=== PATIENT | male | born 1940 | race Caucasian/White ===

== ENCOUNTER 2017-01-11 00:15 | Emergency (ER) | payer MEDICARE, OTHER ==
--- NOTE | 2017-01-11 01:07 | ERNOTE ---
Medical Problem HPI - General Chief Complaint: General Assessment Time Seen by Provider: 01/11/17 00:43 Source: patient Exam Limitations: no limitations - Immun/Allergies/Home Medications Immunizations: IMMUNIZATION HX Immunizations Up to Date Yes History of Influenza Vaccine No Hx Pneumococcal Vaccination No Allergies/Adverse Reactions: Allergies Sulfa (Sulfonamide Antibiotics) Allergy (Verified 01/11/17 00:20) Home Medications: HOME MEDICATIONS Atenolol [Tenormin] 50 mg PO DAILY 03/10/13 [Last Taken Unknown] Terazosin HCl [Hytrin] 5 mg PO HS 03/10/13 [Last Taken Unknown] Warfarin Sodium [Coumadin] 5.5 mg PO DAILY 03/10/13 [Last Taken Unknown] Furosemide [Lasix] 40 mg PO DAILY 12/13/15 [Last Taken Unknown] Tramadol HCl [Rybix Odt] 50 mg PO Q4H PRN 12/13/15 [Last Taken Unknown] predniSONE [Prednisone] 2 tab PO DAILY #10 tab 12/13/15 [Last Taken Unknown] - History of Present History Narrative: Pt has had a sore mouth for a few days and has been using salt water rinses but it has not helped. Today his tongue began bleeding and has not stopped. Pt is on coumadin and is nearly due for his monthly INR. Timing: constant Severity: mild Review of Systems - Review of Systems Constitutional: Absent: recent illness, fever EYE: Present: no symptoms reported ENT: Present: other - oral pain. Absent: nose congestion, sore throat Respiratory: Absent: shortness of breath, cough Cardiology: Present: no symptoms reported Gastrointestinal/Abdominal: Absent: nausea, vomiting Genitourinary: Present: no symptoms reported Musculoskeletal: Present: no symptoms reported Skin: Present: no symptoms reported Neurological: Present: no symptoms reported Endocrine: Present: no symptoms reported Hematologic/Lymphatic: Present: no symptoms reported Psych: Present: no symptoms reported - Patient's Past Medical History Patient History - Medical: Arthritis, GERD, Other Patient History - Cardiac/Respiratory: Atrial Fibrillation Patient History - Cancer: No Hx of Cancer Patient History - Surgical Procedures: Colonoscopy, Other Patient History - Other: None - Family History Mother Family History - Cardiac/Respiratory: Coronary Heart Disease - Social History Living Situations: home Abuse History: No History of abuse Psych History: No pertinent hx Smoking Status: Never smoker Have you smoked in the past 12 months: No Do you dip or chew tobacco: No Alcohol Use: none Drug Use: none - Immunizations Immunizations Up to Date: Yes Hx Pneumococcal Vaccination: No History of Influenza Vaccine: No Physical Exam - Physical Exam General Appearance: Present: wd/wn, alert, no apparent distress Head Exam: Present: normal inspection, no evidence of injury Ears, Nose, Throat: Present: normal pharynx, other - mucous membranes moist, tongue has deep grooves and has a crack or laceration on the right superior surface of the tongue oriented longitudinally. The wound is bleeding mildly- to moderately. No other injury to the tongue inferiorly or laterally Neck: Present: normal inspection, nontender, supple Respiratory: Present: no respiratory distress, no accessory muscle use Neurological Exam: Present: alert, oriented, normal mood/affect, no motor/ sensory deficits, appraisal manager II-XII nml as tested Skin Exam: Present: normal color, warm/dry Lymphatic Exam: Present: no adenopathy ED Progress - Results and Orders Patient's Lab Results:: I have reviewed the patient's lab results. Results and Orders: Laboratory Tests 01/11/17 01/11/17 01:10 01:10 WBC 4.0 Hgb 15.6 Hct 44.6 Plt Count 180 PT 49.9 H INR (Anticoag Therapy) 4.91 H* - Vital Signs Patient's Vital Signs:: I have reviewed the patient's vital signs. Vital Signs: Vital Signs 01/11/17 00:21 Temperature 37 C Pulse Rate 101 H Respiratory 20 Rate Blood Pressure 143/83 O2 Sat by Pulse 99 Oximetry - Progress/Reassessment Chief Complaint: General Assessment Progress:: Improved Progress Note-Subjective: 01/11/17 01:06 placed a small piece of surgicell and 2x2 gauze on the wound and pt will hold in place. 01/11/17 01:30 Piece of surgicell is well adhered to the tongue. gauze removed without difficulty. No bleeding of the wound. Surgicell remained in place. Discussed holding coumadin until INR is checked again and calling his PCP in the [facility] to schedule a blood draw for INR in 2-3 days. Pt expressed understanding Departure Clinical Impression: Abnormal coagulation time Open wound of tongue with complication Qualifiers: Encounter type: initial encounter Qualified Code(s): S01.502A - Unspecified open wound of oral cavity, initial encounter - Departure Disposition: Home Follow Up Needed Condition: Good Instructions: Tongue Laceration, [id number] Additional Instructions: Call your primary care physician in the morning about scheduling an INR check in 2-3 days. Stop your coumadin until your next check or until your doctor tells you to start again. Return to the ER if it begins to bleed again and you cannot get it to stop Referrals: Gilmer Dumont, [Primary Care Provider] -
[2017-01-11 01:15] LABS: Hematocrit 44.6 % (42.0-52.0); Hemoglobin 15.6 gm/dL (13.5-18.0); Mean Cell Volume 91.8 fl (78-100); Mean Corpuscular Hemoglobin 32.1 pg (27-31); Mean Platelet Volume 9.2 fl (6.0-9.5); Neutrophil # 2.4 K/mm3 (1.3-6.0); Neutrophil % 59.6 % (42-75.0); Platelet Count 180 K/mm3 (150-450); Red Blood Count 4.86 M/mm3 (4.7-6.0)
[2017-01-11 01:26] LABS: Prothrombin Time (Patient) 49.9 Seconds (9.0-11.0)
[2017-01-11 01:38] LABS: INR 4.91 INR (0.90-1.10)
[2017-01-11 02:06] VITALS: BP 125/81
== END 2017-01-11 02:00 | disposition home or self-care (01) ==
LOC: ER 00:15
DX: D68.9 Coagulation defect, unspecified (principal); S01.502A Unspecified open wound of oral cavity, initial encounter

== ENCOUNTER 2020-02-06 18:29 | Inpatient (IN) ==
--- NOTE | 2020-02-06 19:38 | ERNOTE ---
Medical Problem HPI - Narrative Date of Service: 02/06/20 - General Chief Complaint: Back Pain Time Seen by Provider: 02/06/20 18:59 Source: patient, RN notes reviewed, old records Exam Limitations: other - Confusion - Immun/Allergies/Home Medications Immunizations: IMMUNIZATION HX Immunizations Up to Date Yes History of Influenza Vaccine Yes Hx Pneumococcal Vaccination Yes Allergies/Adverse Reactions: Allergies Sulfa (Sulfonamide Antibiotics) Allergy (Verified 01/30/20 09:19) Home Medications: HOME MEDICATIONS albuterol sulfate 90 mcg/actuation aerosol inhaler 2 inh IH Q6H PRN #8.5 g 12/27/18 [Last Taken Unknown] fluticasone propionate 50 mcg/actuation nasal spray,suspension 1 spray KEELEY DAILY PRN #18.2 ml 06/05/19 [Last Taken Unknown] meclizine 25 mg tablet 25 mg PO Q6H PRN #60 tab 06/05/19 [Last Taken Unknown] Warfarin Sodium [Coumadin] 2.5 mg PO MO 06/22/19 [Last Taken Unknown] Warfarin Sodium [Coumadin] 5 mg PO SUTUWETHFRSA 06/22/19 [Last Taken Unknown] tramadol 50 mg tablet 50 mg PO Q6H PRN #120 tab 07/09/19 [Last Taken Unknown] atenolol 50 mg tablet 25 mg PO DAILY tab 10/12/19 [Last Taken Unknown] menthol 0.44 %-zinc oxide 20.6 % topical ointment 1 applic TP BID 10/12/19 [Last Taken Unknown] timolol 0.5 % eye drops 1 drp OP BID 10/12/19 [Last Taken Unknown] bumetanide 2 mg tablet 2 mg PO BID #60 tab 11/21/19 [Last Taken Unknown] omeprazole 20 mg tablet,delayed release 20 mg PO DAILY PRN #90 tab 11/22/19 [Last Taken Unknown] terazosin 5 mg capsule 5 mg PO HS #90 cap 12/05/19 [Last Taken Unknown] allopurinol 300 mg tablet 300 mg PO DAILY #30 tab 01/07/20 [Last Taken Unknown] metolazone 5 mg tablet 5 mg PO 2XW PRN #8 tab 01/07/20 [Last Taken Unknown] cyclobenzaprine 10 mg tablet 10 mg PO TID PRN #90 tab 01/28/20 [Last Taken Unknown] potassium chloride 20 mEq tablet,extended release 40 meq PO DAILY #180 tab 01/31/20 [Last Taken Unknown] hydrocodone 5 mg-acetaminophen 325 mg tablet 1 tab PO Q8H PRN #60 tab 02/04/20 [Last Taken Unknown] - History of Present History Narrative: Daniel is a 79 year old male brought to the ED by ambulance for confusion. His family noted that he was not acting normally. He was talking about a dog being in the house. He does not have a dog. He then told the triage nurse that he is here for his upper back pain. Because of this and the swelling in his legs, he states that he can no longer get around at home by himself. These are chronic issues that have been going on for some time. He saw his PCP on 01/29 about the edema in his legs. He also had a MRI of his cervical spine that day. It showed extensive degenerative changes. He denies taking any of his pain medication today. He is also asking for a dinner tray and stating that he has not eaten since breakfast. He was eating dinner when EMS arrived at his home. He is anticoagulated on Coumadin for Afib. It is not known when his confusion began. Review of Systems - Narrative Narrative: Unable to complete ROS d/t patient's confusion Medical History (Last Reviewed 02/06/20 @ 21:32 by Carmen Hand NP) Prostatitis Spells of decreased attentiveness Aortic valve sclerosis per echo Atrial fibrillation BPH (benign prostatic hyperplasia) COPD (chronic obstructive pulmonary disease) Cervical disc disease Cervicalgia Onset Date: ~02/13/15 MRI of cervical spine shows multilevel disc degeneration and disease. 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 Highest level of school completed/degree received: 8th grade Sexually Active: No Service: No Tobacco: Smoking Status: Former smoker Alcohol: alcohol intake: current Alcohol type: wine alcohol intake frequency: 0-2 drinks per day Substance Use: substance use type: does not use Dietary Habits: caffeine: Yes Physical Exam - Physical Exam General Appearance: Present: wd/wn, alert, no apparent distress Head Exam: Present: normal inspection, no evidence of injury Eye Exam: Normal inspection: bilateral Neck: Present: normal inspection, nontender, supple Respiratory: Present: no respiratory distress, no accessory muscle use, lungs clear, expiration (prolonged) Cardiovascular/Chest: Present: irregularly irregular Gastrointestinal/Abdominal: Present: nontender, nondistended, soft Extremity Exam: Present: non-tender, extremity edema - Bilateral lower extremities Neurological Exam: Present: alert, normal mood/affect, no motor/sensory deficits. Absent: oriented Skin Exam: Present: normal color, warm/dry Progress - Results and Orders Patient's Lab Results:: I have reviewed the patient's lab results. - Vital Signs Patient's Vital Signs:: I have reviewed the patient's vital signs. Vital Signs: Vital Signs 02/06/20 18:38 Temperature 36.5 C Pulse Rate 94 Respiratory Rate 16 Blood Pressure 113/64 O2 Sat by Pulse Oximetry 98 - EKG EKG #1 EKG: atrial fibrillation EKG read: Reviewed by me - X-Ray X-Ray #1 X-Ray: chest Interpretation: Interp. by me X-ray Comments: Cardiomegaly, vascular congestion, no significant change from previous - Progress/Reassessment Chief Complaint: Back Pain Progress:: Unchanged Plan - Plan Plan: The patient's potassium of 2.1 is likely the source of his altered mental status. K-riders x4 ordered. Dr. Butler was contacted and agreed to admit the patient. He was also given Kdur 40 mEq po. He will be tested for COVID-19 prior to admission. Departure Clinical Impression: Hypokalemia Altered mental status Qualifiers: Altered mental status type: disorientation Qualified Code(s): R41.0 - Disorientation, unspecified - Departure Disposition: Still a patient Condition: Stable Referrals: Gilmer Dumont DO [Primary Care Provider] -
[2020-02-06 19:59] LABS: Hematocrit 39.6 % (42.0-52.0); Hemoglobin 13.3 gm/dL (13.5-18.0); Mean Cell Volume 86.7 fl (78-100); Mean Corpuscular Hemoglobin 29.1 pg (27-31); Mean Corpuscular Hgb Conc 33.6 g/dl (32-36); Mean Platelet Volume 8.2 fl (8-11.3); Neutrophil # 4.7 K/mm3 (1.3-6.0); Neutrophil % 72.6 % (42-75.0); Platelet Count 213 K/mm3 (150-450); Red Blood Count 4.57 M/mm3 (4.7-6.0); Red Cell Distribution Width 15.3 % (11.5-14.0); White Blood Count 6.5 K/mm3 (4.0-10.5)
[2020-02-06 20:22] LABS: ALT 14 U/L (19-67); AST 25 U/L (0-48); Albumin * 3.2 gm/dl (3.4-5.0); Alkaline Phosphatase * 102 U/L (50-170); Anion Gap 6.8 mmol/L (6.8-13.8); BNP * 5402 pg/mL (5-650); BUN/Creatinine Ratio 30.6 (9.0-21.6); Bilirubin, Total 2.8 mg/dL (0.0-1.1); Blood Urea Nitrogen 38 mg/dL (6-23); Ca. Corrected For Albumin 9.9 mg/dL (8.4-10.2); Calcium * 9.6 mg/dL (7.9-10.9); Carbon Dioxide 37.3 mmol/L (24-32.6); Chloride 90 mmol/L (97-106); Glucose * 110 mg/dL (70-110); Sodium 132 mmol/L (132-142)
[2020-02-06 20:24] LABS: Potassium 2.1 mmol/L (3.4-4.6); Troponin I Less than 0.017 ng/mL (0.00-0.10)
[2020-02-06 20:35] LABS: Urine Bilirubin Negative (NEGATIVE); Urine Blood Negative /ul (NEGATIVE); Urine Ketone Negative (NEGATIVE); Urine Nitrite Negative (NEGATIVE); Urine Protein Negative (NEGATIVE); Urine Specific Gravity <=1.005 SP.GR. (1.005-1.030); Urine Urobilinogen Normal (NORMAL)
[2020-02-06 20:48] LABS: INR 3.2 INR (0.92-1.08); Partial Thrombolplastin Time 43.7 Seconds (24-32); Prothrombin Time (Patient) 30.3 Seconds (9.1-10.7)
[2020-02-06 20:53] LABS: Urine Appearance Clear (CLEAR); Urine Bacteria None Seen; Urine Color Yellow; Urine RBC None Seen /hpf (0-5); Urine WBC None Seen /hpf (0-5)
[2020-02-06] MEDS: NORMAL SALINE 1,000 ML IV PRN (21:14)
[2020-02-06] MEDS: POTASSIUM CHLORIDE IN WATER 100 ML IV SCH ×2 (21:15→23:14)
[2020-02-06] MEDS ORDERED: POTASSIUM CHLORIDE 20 MEQ TABLET.SA PO ONE (21:20)
[2020-02-06] MEDS ORDERED: POTASSIUM CHLORIDE 20 MEQ TABLET.SA ONE (21:22)
[2020-02-07] MEDS: POTASSIUM CHLORIDE IN WATER 100 ML IV SCH ×6 (01:18→17:00)
--- NOTE | 2020-02-07 07:42 | HP ---
Chief Complaint - Chief Complaint Date of Service: 02/07/20 Time of Service: 07:42 Chief Complaint: hypokalemia, confusion History of Present Illness: Patient difficult to understand - speech not entirely clear. He reports having back pain and abdominal gas pain. When asked why he's in the hospital, he states "blood wasn't coming out right," then talks of MRIs. "If you think I'm running out of air, you let her go. No I ain't running out of air." He does not answer all questions. Workup in the ED showed hypokalemia, with K+ of 2.1. He appears jaundiced on exam. Bilirubin elevated at 2.8, up from 1.6 on 01/29. He is admitted for f urther diagnosis and management of encephalopathy, hyperkalemia, hyperbilirubinemia. Medical History (Last Reviewed 02/07/20 @ 00:05 by Sarika Gordon RN) Prostatitis Spells of decreased attentiveness Aortic valve sclerosis per echo Atrial fibrillation BPH (benign prostatic hyperplasia) COPD (chronic obstructive pulmonary disease) Cervical disc disease Cervicalgia Onset Date: ~02/13/15 MRI of cervical spine shows multilevel disc degeneration and disease. 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 Absent: Cough Cardiac: Present: Edema. Absent: Chest Pain Abdominal: Present: Vomiting - "three since dinnertime", Other - bloating Musculoskeletal: Present: Back Pain Immunizations: IMMUNIZATION HX Immunizations Up to Date Yes History of Influenza Vaccine Yes Hx Pneumococcal Vaccination Yes Allergies/Adverse Reactions: Allergies Allergy/AdvReac Type Severity Reaction Status Date / Time Sulfa (Sulfonamide Allergy Verified 01/30/20 09:19 Antibiotics) Home Medications: HOME MEDICATIONS Warfarin Sodium [Coumadin] 2.5 mg PO MO 06/22/19 [Last Taken Unknown] Warfarin Sodium [Coumadin] 5 mg PO SUTUWETHFRSA 06/22/19 [Last Taken Unknown] timolol 0.5 % eye drops 1 drp OP BID 10/12/19 [Last Taken Unknown] bumetanide 2 mg tablet 2 mg PO BID #60 tab 11/21/19 [Last Taken Unknown] omeprazole 20 mg tablet,delayed release 20 mg PO DAILY PRN #90 tab 11/22/19 [Last Taken Unknown] terazosin 5 mg capsule 5 mg PO HS #90 cap 12/05/19 [Last Taken Unknown] allopurinol 300 mg tablet 300 mg PO DAILY #30 tab 01/07/20 [Last Taken Unknown] metolazone 5 mg tablet 5 mg PO 2XW PRN #8 tab 01/07/20 [Last Taken Unknown] cyclobenzaprine 10 mg tablet 10 mg PO TID PRN #90 tab 01/28/20 [Last Taken Unknown] potassium chloride 20 mEq tablet,extended release 40 meq PO DAILY #180 tab 01/31/20 [Last Taken Unknown] hydrocodone 5 mg-acetaminophen 325 mg tablet 1 tab PO Q8H PRN #60 tab 02/04/20 [Last Taken Unknown] Brimonidine Tartrate [Brimonidine 0.2% Ophthalmic Solution] 1 drp OP BID 02/07/20 [Last Taken Unknown] Latanoprost/Pf [Latanoprost 0.005% Eye Drop] 7.5 ml OP QPM 02/07/20 [Last Taken Unknown] predniSONE [Prednisone] 2 tab PO DAILY 02/07/20 [Last Taken Unknown] Exam - Exam Vital Signs: Vital Signs - Last Taken Temp 37.0 C 02/07/20 06:51 Pulse 87 02/07/20 06:51 Resp 20 02/07/20 06:51 BP 99/69 02/07/20 06:51 Pulse Ox 95 02/07/20 06:51 Constitutional: Present: Elderly. Absent: Oriented x3 Respiratory: Present: lungs clear, normal breath sounds Cardiovascular/Chest: Present: irregularly irregular Abdomen: Present: soft, obese, hernia - several large soft protrusions of abdomen Extremity: Present: lower extremity edema Skin Exam: Present: other - venous stasis changes of bilateral lower legs Neurologic: Present: alert, disoriented x 3 Diagnostic Studies: Abnormal Lab Results 02/06/20 02/06/20 02/06/20 Range/Units 19:43 19:43 19:49 RBC 4.57 L (4.7-6.0) M/mm3 Hgb 13.3 L (13.5-18.0) gm/dL Hct 39.6 L (42.0-52.0) % RDW 15.3 H (11.5-14.0) % Immature Gran % (Auto) 0.90 H (0.001-0.429) % Immature Gran # (Auto) 0.06 H (0.000-0.0310) K/mm3 Lymphocytes % 11.8 L (20-51) % Monocytes % 11.2 H (0.0-9) % Basophils % 1.7 H (0.0-1.0) % Lymphocytes # 0.77 L (1.5-3.5) k/mm3 PT 30.3 H (9.1-10.7) Seconds INR (Anticoag Therapy) 3.20 H (0.92-1.08) INR PTT (Jane) 43.7 H (24-32) Seconds Potassium 2.1 L* (3.4-4.6) mmol/L Chloride 90 L (97-106) mmol/L Carbon Dioxide 37.3 H (24-32.6) mmol/L BUN 38 H (6-23) mg/dL BUN/Creatinine Ratio 30.6 H (9.0-21.6) Total Bilirubin 2.8 H (0.0-1.1) mg/dL ALT 14 L (19-67) U/L B-Natriuretic Peptide 5402 H (5-650) pg/mL Albumin 3.2 L (3.4-5.0) gm/dl Laboratory Results WBC 6.5 K/mm3 (4.0-10.5) 02/06/20 19:43 RBC 4.57 M/mm3 (4.7-6.0) L 02/06/20 19:43 Hgb 13.3 gm/dL (13.5-18.0) L 02/06/20 19:43 Hct 39.6 % (42.0-52.0) L 02/06/20 19:43 MCV 86.7 fl (78-100) 02/06/20 19:43 MCH 29.1 pg (27-31) 02/06/20 19:43 MCHC 33.6 g/dl (32-36) 02/06/20 19:43 RDW 15.3 % (11.5-14.0) H 02/06/20 19:43 Plt Count 213 K/mm3 (150-450) 02/06/20 19:43 MPV 8.2 fl (8-11.3) 02/06/20 19:43 Immature Gran % (Auto) 0.90 % (0.001-0.429) H 02/06/20 19:43 Immature Gran # (Auto) 0.06 K/mm3 (0.000-0.0310) H 02/06/20 19:43 Neutrophils % 72.6 % (42-75.0) 02/06/20 19:43 Lymphocytes % 11.8 % (20-51) L 02/06/20 19:43 Monocytes % 11.2 % (0.0-9) H 02/06/20 19:43 Eosinophils % 1.8 % (0.0-3.0) 02/06/20 19:43 Basophils % 1.7 % (0.0-1.0) H 02/06/20 19:43 Nucleated RBC % 0.0 k/mm3 (0-1) 02/06/20 19:43 Neutrophils # 4.7 K/mm3 (1.3-6.0) 02/06/20 19:43 Lymphocytes # 0.77 k/mm3 (1.5-3.5) L 02/06/20 19:43 Monocytes # 0.7 k/mm3 (0.0-1.0) 02/06/20 19:43 Eosinophils # 0.1 k/mm3 (0.0-0.7) 02/06/20 19:43 Absolute Basophils 0.1 k/mm3 (0.0-0.1) 02/06/20 19:43 PT 30.3 Seconds (9.1-10.7) H 02/06/20 19:49 INR (Anticoag Therapy) 3.20 INR (0.92-1.08) H 02/06/20 19:49 PTT (Jane) 43.7 Seconds (24-32) H 02/06/20 19:49 Sodium 132 mmol/L (132-142) 02/06/20 19:43 Plasma Sodium 132 mmol/L (130-142) 02/06/20 19:43 Potassium 2.1 mmol/L (3.4-4.6) L* 02/06/20 19:43 Chloride 90 mmol/L (97-106) L 02/06/20 19:43 Carbon Dioxide 37.3 mmol/L (24-32.6) H 02/06/20 19:43 Anion Gap 6.8 mmol/L (6.8-13.8) 02/06/20 19:43 BUN 38 mg/dL (6-23) H 02/06/20 19:43 Creatinine 1.24 mg/dL (0.4-1.4) 02/06/20 19:43 Est GFR (Non-Af Amer) 60 mL/min (60-130) 02/06/20 19:43 BUN/Creatinine Ratio 30.6 (9.0-21.6) H 02/06/20 19:43 Random Glucose 110 mg/dL (70-110) 02/06/20 19:43 Lactic Acid, Venous 1.5 mmol/L (0.4-2.0) 02/06/20 19:43 Calcium 9.6 mg/dL (7.9-10.9) 02/06/20 19:43 Calcium Adj for Albumin 9.9 mg/dL (8.4-10.2) 02/06/20 19:43 Total Bilirubin 2.8 mg/dL (0.0-1.1) H 02/06/20 19:43 AST 25 U/L (0-48) 02/06/20 19:43 ALT 14 U/L (19-67) L 02/06/20 19:43 Alkaline Phosphatase 102 U/L (50-170) 02/06/20 19:43 Troponin I Less than 0.017 ng/mL (0.00-0.10) 02/06/20 19:43 B-Natriuretic Peptide 5402 pg/mL (5-650) H 02/06/20 19:43 Total Protein 7.0 gm/dL (6.2-8.2) 02/06/20 19:43 Albumin 3.2 gm/dl (3.4-5.0) L 02/06/20 19:43 Urine Color Yellow 02/06/20 20:16 Urine Appearance Clear (CLEAR) 02/06/20 20:16 Urine pH 7.0 pH (5.0-7.0) 02/06/20 20:16 Ur Specific [place] <=1.005 SP.GR. (1.005-1.030) 02/06/20 20:16 Urine Protein Negative mg/dL (NEGATIVE) 02/06/20 20:16 Urine Glucose (UA) Negative mg/dL (NEGATIVE) 02/06/20 20:16 Urine Ketones Negative mg/dL (NEGATIVE) 02/06/20 20:16 Urine Blood Negative /ul (NEGATIVE) 02/06/20 20:16 Urine Nitrate Negative (NEGATIVE) 02/06/20 20:16 Urine Bilirubin Negative mg/dl (NEGATIVE) 02/06/20 20:16 Urine Urobilinogen Normal EU/dl (NORMAL) 02/06/20 20:16 Ur Leukocyte Esterase Negative /ul (NEGATIVE) 02/06/20 20:16 Urine RBC None seen /hpf (0-5) 02/06/20 20:16 Urine WBC None seen /hpf (0-5) 02/06/20 20:16 Ur Epithelial Cells Trace /hpf (0-5) 02/06/20 20:16 Urine Bacteria None seen (NONE) 02/06/20 20:16 Urine Culture Comments No culture indicated 02/06/20 20:16 SARS-CoV-2 (PCR) Not detected (NotDetected) 02/06/20 21:03 Assessment/Plan - Narrative Narrative: The source of his encephalopathy is unclear at this time, but suspect it's medication induced, making it toxic encephalopathy. It could also be metabolic from his hypokalemia, but it's not yet resolving as his potassium is replaced. Will hold flexeril and home hydrocodone, and monitor for resolution. He is disoriented, mumbles at times, repeatedly trying to get out of bed, and gives illogical answers to questions. CT head showed "Age-indeterminate hypodensity versus artifact at the left cerebellum. This could represent an age- indeterminate lacunar infarct. Recommend clinical correlation and further evaluation with an MRI of the brain with and without contrast, as clinically warranted." If he does not improve, can obtain an MRI. No signs of infection on workup thus far, and he's been afebrile. Normal sodium and glucose. He's not been hypoxic. He appears mildly jaundiced on exam, so will obtain abd US. His alk phos, AST, ALT are not elevated, however. He was given 40 mEq KDur in the ED, as well as 40 mEq via IV. Will repeat, as his potassium improved from 2.1 to 2.8, but is still low. He did report recent vomiting, but I am not sure if he is giving reliable information. Case management note has more info from his daughter. He has been declining recently, having more edema and is overall less functional. - Assessment/Plan (1) Encephalopathy, unspecified Assessment: Flexeril can cause confusion, so this could be the source. Problem: Acute (2) Hypokalemia Problem: Acute (3) Jaundice Assessment: Bili is high at 2.8, but AST, ALT, alk phos are not elevated. US abdomen pending. Problem: Acute (4) Hyperbilirubinemia Problem: Acute (5) Left ventricular hypertrophy Problem: Chronic (6) Diastolic dysfunction Problem: Chronic
[2020-02-07 08:52] LABS: Albumin * 3.1 gm/dl (3.4-5.0); Anion Gap 9.8 mmol/L (6.8-13.8); BUN/Creatinine Ratio 31.5 (9.0-21.6); Bilirubin, Total 2.9 mg/dL (0.0-1.1); Ca. Corrected For Albumin 9.9 mg/dL (8.4-10.2); Calcium * 9.5 mg/dL (7.9-10.9); Potassium 2.8 mmol/L (3.4-4.6); Total Protein 7.1 gm/dL (6.2-8.2)
[2020-02-07] MEDS ORDERED: METOLAZONE 5 MG TABLET PO PRN (13:27)
[2020-02-07] MEDS: POTASSIUM CHLORIDE 20 MEQ TABLET.SA PO SCH (13:42)
[2020-02-07] MEDS: BUMETANIDE 1 MG TABLET PO SCH ×2 (13:42→22:07)
[2020-02-07 15:24] LABS: Prothrombin Time (Patient) 21.9 Seconds (9.1-10.7)
[2020-02-07 15:39] LABS: INR 2.28 INR (0.92-1.08)
[2020-02-07] MEDS: WARFARIN SODIUM 5 MG TABLET PO SCH (17:02)
[2020-02-08] MEDS: NORMAL SALINE 1,000 ML IV PRN ×2 (01:26→18:34)
[2020-02-08 07:12] LABS: INR 2.73 INR (0.92-1.08)
[2020-02-08] MEDS: BUMETANIDE 1 MG TABLET PO SCH ×2 (08:38→20:02)
[2020-02-08] MEDS: predniSONE 20 MG TABLET PO SCH (08:38)
[2020-02-08] MEDS: POTASSIUM CHLORIDE 20 MEQ TABLET.SA PO SCH (08:38)
[2020-02-08 08:57] LABS: Anion Gap 16.2 mmol/L (6.8-13.8); BUN/Creatinine Ratio 27.8 (9.0-21.6); Calcium * 9.8 mg/dL (7.9-10.9); Carbon Dioxide 31.2 mmol/L (24-32.6); Potassium 3.4 mmol/L (3.4-4.6)
[2020-02-08] MEDS ORDERED: METOPROLOL TARTRATE 1 MG/ML AMPUL IV ONE ×2 (10:04→17:47)
--- NOTE | 2020-02-08 16:20 | PN ---
Subjective - Date and Time Seen Date: 02/08/20 Time: 11:12 Subjective Narrative: Patient with significant expressive aphasia, patient appears demented. Patient's family in the room and states that he has slowly been progressing towards this point lately but cannot answer much more than that. Unsure of what his baseline is, unsure of what he was at yesterday but he appears to be more conversant yesterday than he is today. His speech apparently was much more clear yesterday 2. Patient right now mostly moaning, incomprehensible phrases. He was initially medically hypokalemic at 2.1 which is returned normal. Patient's PCP takes over his care this evening, patient likely need MRI of his brain but patient's decline has not been rapid or acute there is no other neurological symptoms aside from poor cognition and confusion. Will wait and see what his PCP thinks about ordering the MRI. We will check an ammonia level on him today. Objective Objective Narrative: Unable to obtain though patient does deny being in any pain. - Vitals Vitals: Last Vital Signs Temp 37.2 C 02/08/20 15:28 Pulse 152 H 02/08/20 15:28 Resp 48 H 02/08/20 15:28 BP 142/91 H 02/08/20 15:28 Pulse Ox 90 L 02/08/20 15:28 - Abnormal Lab Findings Abnormal Lab Findings: Abnormal Lab Results 02/08/20 02/08/20 Range/Units 06:19 06:19 PT 26.0 H (9.1-10.7) Seconds INR (Anticoag Therapy) 2.73 H (0.92-1.08) INR Chloride 96 L (97-106) mmol/L Anion Gap 16.2 H (6.8-13.8) mmol/L BUN 32 H (6-23) mg/dL BUN/Creatinine Ratio 27.8 H (9.0-21.6) Random Glucose 126 H (70-110) mg/dL - Exam Constitutional: Present: Other - Poor cognition, expressive aphasia. Absent: No distress ENT Exam: Present: hard of hearing Respiratory: Present: lungs clear, normal breath sounds Cardiovascular/Chest: Present: regular rate, rhythm, no murmur Skin Exam: Present: normal color, warm/dry Neurologic: Present: other - Unable to obtain neurological function due to Appearance: Present: appropriate appearance Assessment/Plan Plan Narrative: Patient with significant cognitive deficit, appears to be demented. Patient's potassium resolved but patient still encephalopathic. We will check an ammonia level on him today. His vital signs are fairly stable besides a rising tachycar erica. We will start him on metoprolol IV as he was not cleared by speech to take anything orally at this time. Blood pressure mildly elevated at 140s over 90s, if it continues to elevate and he likely to be on IV hydralazine 10 mg for systolic greater than 160. We will order this as well. Patient with further significant decline in cognition but no other neurological deficits as far as I can tell. Patient does follow simple commands and is equally strong bilaterally. No facial droop. We will discuss his case with his PCP who takes over his care this evening and see if he thinks he needs an MRI of his brain. Continue chronic treatment plans for his other comorbidities. Nurse to call questions or concerns. - Problems/Diagnosis (1) Hypokalemia Problem: Resolved (2) Altered mental status Problem: Acute Qualifiers: Altered mental status type: disorientation Qualified Code(s): R41.0 - Disorientation, unspecified (3) Encephalopathy, unspecified Problem: Acute (4) Hyperbilirubinemia Problem: Acute
[2020-02-08] MEDS: METOPROLOL TARTRATE 1 MG/ML AMPUL IV SCH ×3 (17:49→18:00)
[2020-02-08] MEDS: WARFARIN SODIUM 5 MG TABLET PO SCH (17:50)
[2020-02-09] MEDS: predniSONE 20 MG TABLET PO SCH (09:15)
[2020-02-09] MEDS: POTASSIUM CHLORIDE 20 MEQ TABLET.SA PO SCH (09:16)
[2020-02-09] MEDS: BUMETANIDE 1 MG TABLET PO SCH ×2 (09:16→20:06)
[2020-02-09] MEDS ORDERED: LORazepam 1 MG TABLET PO PRN (10:08)
[2020-02-09] MEDS ORDERED: LORazepam 0.5 MG TABLET ONE ×2 (10:13→10:19)
[2020-02-09] MEDS: WARFARIN SODIUM 5 MG TABLET PO SCH (16:35)
[2020-02-10] MEDS: NORMAL SALINE 1,000 ML IV PRN (00:57)
--- NOTE | 2020-02-10 05:11 | PN ---
Subjective - Date and Time Seen Date: 02/09/20 Time: 10:00 Subjective Narrative: Daniel recognizes me today. He reports feeling out of it, per nursing is more alert and less confused than yesterday or even earlier this morning. He reports sore all over. Objective - Vitals Vitals: Last Vital Signs Temp 36.3 C 02/10/20 03:34 Pulse 99 02/10/20 03:34 Resp 24 H 02/10/20 03:34 BP 111/77 02/10/20 03:34 Pulse Ox 97 02/10/20 03:34 - Exam Constitutional: Present: Alert, Oriented x3, Cooperative ENT Exam: Present: hearing grossly normal Respiratory: Present: lungs clear, normal breath sounds, no respiratory distress Cardiovascular/Chest: Present: no murmur, irregularly irregular Abdomen: Present: Normal bowel sounds, soft, nontender, nondistended Skin Exam: Present: normal color, warm/dry, no cyanosis Assessment/Plan Plan Narrative: Daniel is improved today. Still not his normal self. Question possible stroke. Will evaluate with MRI of brain. Potassium has normalized. - Problems/Diagnosis (1) Altered mental status Problem: Acute Qualifiers: Altered mental status type: disorientation Qualified Code(s): R41.0 - Disorientation, unspecified (2) Hypokalemia Problem: Resolved
[2020-02-10] MEDS: BUMETANIDE 1 MG TABLET PO SCH (08:32)
[2020-02-10] MEDS: predniSONE 20 MG TABLET PO SCH (08:32)
[2020-02-10] MEDS: POTASSIUM CHLORIDE 20 MEQ TABLET.SA PO SCH ×2 (08:32→16:52)
[2020-02-10 08:56] LABS: Hematocrit 45.8 % (42.0-52.0); Hemoglobin 14.2 gm/dL (13.5-18.0); Mean Corpuscular Hemoglobin 29.2 pg (27-31); Mean Platelet Volume 8.9 fl (8-11.3); Neutrophil # 5.8 K/mm3 (1.3-6.0); Platelet Count 179 K/mm3 (150-450); Red Blood Count 4.87 M/mm3 (4.7-6.0); Red Cell Distribution Width 16.6 % (11.5-14.0); White Blood Count 7.8 K/mm3 (4.0-10.5)
[2020-02-10 09:08] LABS: Albumin * 2.9 gm/dl (3.4-5.0); Anion Gap 8.4 mmol/L (6.8-13.8); BUN/Creatinine Ratio 33.3 (9.0-21.6); Bilirubin, Total 2.1 mg/dL (0.0-1.1); Ca. Corrected For Albumin 9.9 mg/dL (8.4-10.2); Calcium * 9.3 mg/dL (7.9-10.9); Carbon Dioxide 37.5 mmol/L (24-32.6); Potassium 2.9 mmol/L (3.4-4.6); Total Protein 6.5 gm/dL (6.2-8.2)
[2020-02-10] MEDS ORDERED: 0.5 NORMAL SALINE 1,000 ML IV PRN (09:54)
[2020-02-10 13:06] LABS: Prothrombin Time (Patient) 67.5 Seconds (9.1-10.7)
[2020-02-10 13:09] LABS: INR 7.36 INR (0.92-1.08)
--- NOTE | 2020-02-10 22:49 | PN ---
Subjective - Date and Time Seen Date: 02/10/20 Time: 08:45 Subjective Narrative: Daniel is feeling much better today. He is no longer confused and feeling stronger. No shortness of breath, fever, or chills. Potassium is still low at 2.9 today but higher than admission. He still feels weak he would consider SNF. Objective - Vitals Vitals: Last Vital Signs Temp 36.6 C 02/10/20 19:04 Pulse 110 H 02/10/20 19:04 Resp 36 H 02/10/20 19:04 BP 115/79 02/10/20 19:04 Pulse Ox 99 02/10/20 19:04 - Abnormal Lab Findings Abnormal Lab Findings: Abnormal Lab Results 02/10/20 02/10/20 02/10/20 Range/Units 08:52 08:52 12:42 MCHC 31.0 L (32-36) g/dl RDW 16.6 H (11.5-14.0) % Immature Gran % (Auto) 0.80 H (0.001-0.429) % Immature Gran # (Auto) 0.06 H (0.000-0.0310) K/mm3 Lymphocytes % 10.9 L (20-51) % Monocytes % 11.8 H (0.0-9) % Lymphocytes # 0.85 L (1.5-3.5) k/mm3 PT 67.5 H (9.1-10.7) Seconds INR (Anticoag Therapy) 7.36 H* (0.92-1.08) INR Sodium 148 H (132-142) mmol/L Plasma Sodium 149 H (130-142) mmol/L Potassium 2.9 L (3.4-4.6) mmol/L Carbon Dioxide 37.5 H (24-32.6) mmol/L BUN 41 H (6-23) mg/dL BUN/Creatinine Ratio 33.3 H (9.0-21.6) Random Glucose 139 H (70-110) mg/dL Total Bilirubin 2.1 H (0.0-1.1) mg/dL AST 107 H (0-48) U/L ALT 85 H (19-67) U/L Albumin 2.9 L (3.4-5.0) gm/dl - Exam Constitutional: Present: Alert, Oriented x3, Cooperative Respiratory: Present: lungs clear, normal breath sounds, no respiratory distress Cardiovascular/Chest: Present: no murmur, irregularly irregular Abdomen: Present: Normal bowel sounds, soft, nontender Appearance: Present: appropriate appearance, appropriate insight Eye contact: Present: cooperative, good eye contact, normal speech Thoughts: Present: normal thought pattern, no apparent hallucination Assessment/Plan Plan Narrative: Daniel is much improved. Potassium is still low, will replace. Will see how he is tomorrow and plan to discharge to home vs SNF. - Problems/Diagnosis (1) Altered mental status Problem: Resolved Qualifiers: Altered mental status type: disorientation Qualified Code(s): R41.0 - Disorientation, unspecified (2) Hypokalemia Problem: Resolved
[2020-02-11 06:56] LABS: Hematocrit 44.3 % (42.0-52.0); Mean Cell Volume 92.1 fl (78-100); Mean Corpuscular Hemoglobin 29.1 pg (27-31); Mean Corpuscular Hgb Conc 31.6 g/dl (32-36); Mean Platelet Volume 9.4 fl (8-11.3); Neutrophil # 5.9 K/mm3 (1.3-6.0); Neutrophil % 78.3 % (42-75.0); Platelet Count 161 K/mm3 (150-450); Red Blood Count 4.81 M/mm3 (4.7-6.0); White Blood Count 7.5 K/mm3 (4.0-10.5)
[2020-02-11 07:09] LABS: Albumin * 2.7 gm/dl (3.4-5.0); Anion Gap 7.5 mmol/L (6.8-13.8); BUN/Creatinine Ratio 30.4 (9.0-21.6); Bilirubin, Total 1.5 mg/dL (0.0-1.1); Ca. Corrected For Albumin 9.5 mg/dL (8.4-10.2); Calcium * 8.8 mg/dL (7.9-10.9); Potassium 3.5 mmol/L (3.4-4.6); Total Protein 6.4 gm/dL (6.2-8.2)
[2020-02-11] MEDS: predniSONE 20 MG TABLET PO SCH (08:22)
[2020-02-11] MEDS: POTASSIUM CHLORIDE 20 MEQ TABLET.SA PO SCH ×2 (08:26→17:32)
[2020-02-11] MEDS: ACETAMINOPHEN 500 MG TABLET PO PRN ×2 (08:55→15:16)
[2020-02-11] MEDS: PHENOL 180 SPRAY BTL MM PRN ×2 (08:59→15:18)
[2020-02-11 09:00] LABS: INR 6.63 INR (0.92-1.08)
[2020-02-11] MEDS ORDERED: WARFARIN SODIUM 2.5 MG TABLET PO SCH (17:00)
--- NOTE | 2020-02-11 22:05 | PN ---
Subjective - Date and Time Seen Date: 02/11/20 Time: 08:15 Subjective Narrative: Daniel feels great today. Potassium is normal. Edema is improved. He feels weak and would like therapy at shelter. Objective - Vitals Vitals: Last Vital Signs Temp 36.1 C 02/11/20 18:18 Pulse 132 H 02/11/20 18:18 Resp 36 H 02/11/20 18:18 BP 116/82 02/11/20 18:18 Pulse Ox 99 02/11/20 18:18 - Abnormal Lab Findings Abnormal Lab Findings: Abnormal Lab Results 02/11/20 02/11/20 02/11/20 Range/Units 06:30 06:30 06:30 MCHC 31.6 L (32-36) g/dl RDW 16.0 H (11.5-14.0) % Immature Gran % (Auto) 0.70 H (0.001-0.429) % Immature Gran # (Auto) 0.05 H (0.000-0.0310) K/mm3 Neutrophils % 78.3 H (42-75.0) % Lymphocytes % 9.7 L (20-51) % Monocytes % 10.9 H (0.0-9) % Lymphocytes # 0.73 L (1.5-3.5) k/mm3 PT 61.0 H (9.1-10.7) Seconds INR (Anticoag Therapy) 6.63 H* (0.92-1.08) INR Plasma Sodium 143 H (130-142) mmol/L Carbon Dioxide 35.0 H (24-32.6) mmol/L BUN 31 H (6-23) mg/dL BUN/Creatinine Ratio 30.4 H (9.0-21.6) Random Glucose 137 H (70-110) mg/dL Total Bilirubin 1.5 H (0.0-1.1) mg/dL AST 104 H (0-48) U/L ALT 101 H (19-67) U/L Albumin 2.7 L (3.4-5.0) gm/dl - Exam Constitutional: Present: Alert, Oriented x3, Cooperative ENT Exam: Present: hearing grossly normal Respiratory: Present: lungs clear, normal breath sounds Cardiovascular/Chest: Present: no murmur, irregularly irregular Abdomen: Present: Normal bowel sounds, soft, nontender Extremity: Present: lower extremity edema - 1+ Appearance: Present: appropriate appearance, appropriate insight Eye contact: Present: cooperative, good eye contact, normal speech Thoughts: Present: normal thought pattern, no apparent hallucination Assessment/Plan Plan Narrative: Daniel is doing much better now that potassium is replenished. He is weak and will need SNF at shelter. Plan to discharge tomorrow. - Problems/Diagnosis (1) Altered mental status Problem: Resolved Qualifiers: Altered mental status type: disorientation Qualified Code(s): R41.0 - Disorientation, unspecified (2) Hypokalemia Problem: Resolved (3) Weakness Problem: Acute
[2020-02-12] MEDS: PHENOL 180 SPRAY BTL MM PRN ×3 (00:15→09:16)
[2020-02-12 06:51] LABS: Albumin * 2.8 gm/dl (3.4-5.0); Anion Gap 6.4 mmol/L (6.8-13.8); Bilirubin, Total 1.6 mg/dL (0.0-1.1); Ca. Corrected For Albumin 9.5 mg/dL (8.4-10.2); Calcium * 8.9 mg/dL (7.9-10.9); Carbon Dioxide 36.9 mmol/L (24-32.6); Potassium 4.3 mmol/L (3.4-4.6); Total Protein 6.5 gm/dL (6.2-8.2)
[2020-02-12] MEDS: ACETAMINOPHEN 500 MG TABLET PO PRN (07:05)
[2020-02-12 08:34] LABS: Prothrombin Time (Patient) 47.8 Seconds (9.1-10.7)
[2020-02-12 08:39] LABS: INR 5.14 INR (0.92-1.08)
[2020-02-12] MEDS: predniSONE 20 MG TABLET PO SCH (09:10)
[2020-02-12] MEDS: POTASSIUM CHLORIDE 20 MEQ TABLET.SA PO SCH (09:10)
--- NOTE | 2020-02-12 10:15 | DS ---
(1) Acute metabolic encephalopathy Problem: Resolved (2) Hypokalemia Problem: Resolved (3) Weakness Problem: Acute Date of Discharge:: 02/12/20 Hospital Course: Daniel was admitted for metabolic encephalopathy secondary to hypokalemia. This was treated with potassium replacement and his mental status gradually improved and has remained stable. He is doing well, but very weak following his illness. PT and OT were consulted and he would benefit from SNF. He will be discharged today with PT and OT in SNF in order to work him back to home. His home potassium will be adjusted and will follow up with outpatient potassium monitoring. Procedures Performed: none Results and Findings: Lab Pending Results 02/06/20 19:43: WBC 6.5, RBC 4.57 L, Hgb 13.3 L, Hct 39.6 L, MCV 86.7, MCH 29.1, MCHC 33.6, RDW 15.3 H, Plt Count 213, MPV 8.2, Immature Gran % (Auto) 0.90 H, Immature Gran # (Auto) 0.06 H, Neutrophils % 72.6, Lymphocytes % 11.8 L, Monocytes % 11.2 H, Eosinophils % 1.8, Basophils % 1.7 H, Nucleated RBC % 0.0, Neutrophils # 4.7, Lymphocytes # 0.77 L, Monocytes # 0.7, Eosinophils # 0.1, Absolute Basophils 0.1 02/06/20 19:43: Sodium 132, Plasma Sodium 132, Potassium 2.1 L*, Chloride 90 L, Carbon Dioxide 37.3 H, Anion Gap 6.8, BUN 38 H, Creatinine 1.24, Est GFR (Non-Af Amer) 60, BUN/Creatinine Ratio 30.6 H, Random Glucose 110, Calcium 9.6, Calcium Adj for Albumin 9.9, Total Bilirubin 2.8 H, AST 25, ALT 14 L, Alkaline Phosphatase 102, Troponin I Less than 0.017, B-Natriuretic Peptide 5402 H, Total Protein 7.0, Albumin 3.2 L 02/06/20 19:43: Lactic Acid, Venous 1.5 02/06/20 19:49: PT 30.3 H, INR (Anticoag Therapy) 3.20 H, PTT (Jane) 43.7 H 02/06/20 20:16: Urine Color Yellow, Urine Appearance Clear, Urine pH 7.0, Ur Specific [place] <=1.005, Urine Protein Negative, Urine Glucose (UA) Negative, Urine Ketones Negative, Urine Blood Negative, Urine Nitrate Negative, Urine Bilirubin Negative, Urine Urobilinogen Normal, Ur Leukocyte Esterase Negative, Urine RBC None seen, Urine WBC None seen, Ur Epithelial Cells Trace, Urine Bacteria None seen, Urine Culture Comments No culture indicated 02/06/20 21:03: SARS-CoV-2 (PCR) Not detected 02/07/20 08:28: Sodium 135, Plasma Sodium 135, Potassium 2.8 L D, Chloride 93 L, Carbon Dioxide 35.0 H, Anion Gap 9.8, BUN 35 H, Creatinine 1.11, Est GFR (Non-Af Amer) 68, BUN/Creatinine Ratio 31.5 H, Random Glucose 117 H, Calcium 9.5, Ca lcium Adj for Albumin 9.9, Total Bilirubin 2.9 H, AST 25, ALT 11 L, Alkaline Phosphatase 95, Total Protein 7.1, Albumin 3.1 L 02/07/20 15:00: PT 21.9 H, INR (Anticoag Therapy) 2.28 H 02/08/20 06:19: PT 26.0 H, INR (Anticoag Therapy) 2.73 H 02/08/20 06:19: Sodium 140, Plasma Sodium 140, Potassium 3.4 D, Chloride 96 L, Carbon Dioxide 31.2, Anion Gap 16.2 H, BUN 32 H, Creatinine 1.15, Est GFR (Non- Af Amer) 65, BUN/Creatinine Ratio 27.8 H, Random Glucose 126 H, Calcium 9.8 02/08/20 14:00: Ammonia Less than 17.0 02/10/20 08:52: WBC 7.8, RBC 4.87, Hgb 14.2, Hct 45.8, MCV 94.0, MCH 29.2, MCHC 31.0 L, RDW 16.6 H, Plt Count 179, MPV 8.9, Immature Gran % (Auto) 0.80 H, Immature Gran # (Auto) 0.06 H, Neutrophils % 75.0, Lymphocytes % 10.9 L, Monocytes % 11.8 H, Eosinophils % 0.9, Basophils % 0.6, Nucleated RBC % 0.0, Neutrophils # 5.8, Lymphocytes # 0.85 L, Monocytes # 0.9, Eosinophils # 0.1, Absolute Basophils 0.1 02/10/20 08:52: Sodium 148 H, Plasma Sodium 149 H, Potassium 2.9 L, Chloride 105, Carbon Dioxide 37.5 H, Anion Gap 8.4, BUN 41 H, Creatinine 1.23, Est GFR (Non-Af Amer) 60, BUN/Creatinine Ratio 33.3 H, Random Glucose 139 H, Calcium 9.3, Calcium Adj for Albumin 9.9, Total Bilirubin 2.1 H, AST 107 H, ALT 85 H, Alkaline Phosphatase 74, Total Protein 6.5, Albumin 2.9 L 02/10/20 12:42: PT 67.5 H, INR (Anticoag Therapy) 7.36 H* 02/11/20 06:30: WBC 7.5, RBC 4.81, Hgb 14.0, Hct 44.3, MCV 92.1, MCH 29.1, MCHC 31.6 L, RDW 16.0 H, Plt Count 161, MPV 9.4, Immature Gran % (Auto) 0.70 H, Immature Gran # (Auto) 0.05 H, Neutrophils % 78.3 H, Lymphocytes % 9.7 L, Monocytes % 10.9 H, Eosinophils % 0.1, Basophils % 0.3, Nucleated RBC % 0.0, Neutrophils # 5.9, Lymphocytes # 0.73 L, Monocytes # 0.8, Eosinophils # 0.0, Absolute Basophils 0.0 02/11/20 06:30: Sodium 142, Plasma Sodium 143 H, Potassium 3.5 D, Chloride 103, Carbon Dioxide 35.0 H, Anion Gap 7.5, BUN 31 H, Creatinine 1.02, Est GFR (Non-Af Amer) 75 D, BUN/Creatinine Ratio 30.4 H, Random Glucose 137 H, Calcium 8.8, Calcium Adj for Albumin 9.5, Total Bilirubin 1.5 H, AST 104 H, ALT 101 H, Alkaline Phosphatase 73, Total Protein 6.4, Albumin 2.7 L 02/11/20 06:30: PT 61.0 H, INR (Anticoag Therapy) 6.63 H* 02/12/20 06:05: Sodium 142, Plasma Sodium 142, Potassium 4.3 D, Chloride 103, Carbon Dioxide 36.9 H, Anion Gap 6.4 L, BUN 28 H, Creatinine 1.00, Est GFR (Non- Af Amer) 76, BUN/Creatinine Ratio 28.0 H, Random Glucose 121 H, Calcium 8.9, Calcium Adj for Albumin 9.5, Total Bilirubin 1.6 H, AST 109 H, ALT 121 H, Alkaline Phosphatase 92, Total Protein 6.5, Albumin 2.8 L 02/12/20 08:13: PT 47.8 H, INR (Anticoag Therapy) 5.14 H* Discharge Location: [facility] Disposition: SNF Condition: Good Level of Care: SNF Discharge Activity: Activity as tolerated Discharge Diet: Low salt Mcc Therapy: Physical Therapy, Occupation Therapy Referrals: Gilmer Dumont, [Primary Care Provider] - (Video visits prn) Problem Oriented Discharge Instructions to Patient/Family: Hypokalemia Additional Patient Instructions (free text): [facility] for therapies, PT and OT to evaluate and treat. Please call and fax discharge information to them. INR on 02/14/20 Prescriptions (Any new or edited meds): Potassium Chloride [K-Dur] 40 meq PO BIDWM #120 tablet.sa Transmission Status: Pending to [facility] Complete Home Medications List: Complete Home Medication List: Warfarin Sodium [Coumadin] 2.5 mg PO MO 06/22/19 Warfarin Sodium [Coumadin] 5 mg PO [id number] 06/22/19 timolol 0.5 % eye drops 1 drp OP BID 10/12/19 bumetanide 2 mg tablet 2 mg PO BID #60 tab 11/21/19 omeprazole 20 mg tablet,delayed release 20 mg PO DAILY PRN #90 tab 11/22/19 terazosin 5 mg capsule 5 mg PO HS #90 cap 12/05/19 allopurinol 300 mg tablet 300 mg PO DAILY #30 tab 01/07/20 metolazone 5 mg tablet 5 mg PO 2XW PRN #8 tab 01/07/20 cyclobenzaprine 10 mg tablet 10 mg PO TID PRN #90 tab 01/28/20 potassium chloride 20 mEq tablet,extended release 40 meq PO DAILY #180 tab 01/31/20 hydrocodone 5 mg-acetaminophen 325 mg tablet 1 tab PO Q8H PRN #60 tab 02/04/20 Brimonidine Tartrate [Brimonidine 0.2% Ophthalmic Solution] 1 drp OP BID 02/07/20 Latanoprost/Pf [Latanoprost 0.005% Eye Drop] 7.5 ml OP QPM 02/07/20 predniSONE [Prednisone] 2 tab PO DAILY 02/07/20 Potassium Chloride [K-Dur] 40 meq PO BIDWM #120 tablet.sa 02/12/20 Amb Orders for Discharge: Comprehensive Metabolic Panel Time Frame: 02/14/20, Facility: [facility], Location: Laboratory Prothrombin Time Time Frame: 02/14/20, Facility: [facility], Location: Laboratory Forms: Patient Portal Registration
[2020-02-12 11:13] VITALS: BP 100/71
[2020-02-12] MEDS ORDERED: WARFARIN SODIUM 1 TAB TAB PO SCH (17:00)
== END 2020-02-12 13:05 | DRG 640 ==
LOC: MS 18:29 → ER 18:29 → MS 23:42
PROVIDERS: ADMIT Family Medicine; ATTEND Family Medicine
DX: R53.1 Weakness; I11.0 Hypertensive heart disease with heart failure; G93.41 Metabolic encephalopathy; R17 Unspecified jaundice; R47.01 Aphasia; E87.6 Hypokalemia; I50.32 Chronic diastolic (congestive) heart failure